=== PATIENT | female | born 1970 | race Caucasian/White ===

== ENCOUNTER 2019-02-23 15:50 | Observation (INO) | payer OTHER ==
[2019-02-23] MEDS ORDERED: NA CHLORIDE 0.9% 1,000 ML ONE ×2 (16:27→19:19)
[2019-02-23 16:29] LABS: Blood Gas Oxyhemoglobin 88.2 % (94-97); Blood O2 Saturation 95.7 % (92-98.5)
--- NOTE | 2019-02-23 16:39 | RAD REPORT ---
EXAM DESCRIPTION: RAD - Chest Single View - 02/23/2019 4:22 pm CLINICAL HISTORY: Chest pain COMPARISON: September 2013 TECHNIQUE: AP portable chest image was obtained 1619 hours . FINDINGS: Lungs are clear. Heart and vasculature are normal. No measurable pleural effusion and no p neumothorax. No acute bony abnormality seen. No acute aortic findings suspected. IMPRESSION: No acute cardiopulmonary process. No significant interval change.
[2019-02-23] MEDS ORDERED: INSULIN -REGULAR HUMAN 100 UNIT in NA CHLORIDE 0.9% 100 ML IV ONE (17:00)
[2019-02-23] MEDS ORDERED: INSULIN -REGULAR HUMAN 50 UNIT/0.5 ML ML ONE (17:00)
[2019-02-23 17:02] LABS: Protime INR 0.94
[2019-02-23 17:03] LABS: Absolute Lymphocytes (CBC) 1.6 K/uL (0.7-4.9); Absolute Monocytes 0.6 K/uL (0.1-1.3); Absolute Neutrophil 4.5 K/uL (1.8-8.0); Basophils % 0.8 % (0-1.3); Eosinophils % 1.9 % (0-4.4); Hematocrit 41.8 % (36.0-45.0); Lymphocytes % 22.8 % (15.3-44.8); MPV 8.8 fL (7.6-11.3); Monocytes % 8.1 % (3.3-12.3); RBC Red Blood Cell Count 4.06 M/uL (3.86-4.86)
[2019-02-23 17:32] LABS: ALT/SGPT 19 U/L (12-78); AST/SGOT 16 U/L (15-37); Alkaline Phosphatase 97 U/L (45-117); BUN Blood Urea Nitrogen 17 mg/dL (7-18); Bicarbonate 17 mmol/L (21-32); Bilirubin Direct 0.2 mg/dL (0-0.2); Bilirubin Total 0.9 mg/dL (0.2-1.0); Magnesium 1.9 mg/dL (1.8-2.4); NT PRO-BNP 266 pg/mL (<125); Potassium 4.5 mmol/L (3.5-5.1); Protein, Total 7.2 g/dL (6.4-8.2); Sodium Level 133 mmol/L (136-145); Troponin (Emerg Dept Use Only) < 0.02 ng/mL (0.0-0.045)
[2019-02-23 17:35] LABS: Glucose Level 454 mg/dL (74-106)
[2019-02-23 18:08] LABS: Urine Blood 2+ (NEG); Urine Glucose 2+ (NEG); Urine Protein NEGATIVE (NEG); Urine Specific Gravity 1.025 (1.005-1.030)
[2019-02-23 18:38] LABS: Urine Bacteria NONE SEEN /HPF (<20); Urine Culture Reflex Order NOT NEEDED; Urine RBC <5 /HPF (NONE SEEN)
--- NOTE | 2019-02-23 19:07 | ER ---
Nurse's Notes [facility] Name: Annia Wang Age: 48 yrs Sex: Female : 1970 Arrival Date: 02/23/2019 Time: 15:53 Bed 23 Private MD: Chloe Cleaning C Diagnosis: Type 1 diabetes mellitus with ketoacidosis Presentation: 02/23 15:55 Presenting complaint: Patient states: heart racing, chest tightness, nausea, cough, sv hyperglycemia BS has been in the 400-500s today, normally it is 80-100s started today. Pt has an insulin pump. Transition of care: patient was not received from another setting of care. Onset of symptoms was February 23, 2019. Care prior to arrival: None. 15:55 Method Of Arrival: Ambulatory sv 15:55 Acuity: ONOFRE 3 sv 20:04 Initial Sepsis Screen: Does the patient meet any 2 criteria? No. Patient's initial ea sepsis screen is negative. Does the patient have a suspected source of infection? No. Patient's initial sepsis screen is negative. 20:04 Risk Assessment: Do you want to hurt yourself or someone else? Patient reports no ea desire to harm self or others. Triage Assessment: 15:56 General: Appears in no apparent distress. uncomfortable, well groomed, well developed, sv Behavior is calm, cooperative, appropriate for age. Pain: Complains of pain in chest Pain currently is 3 out of 10 on a pain scale. Quality of pain is described as "tightness". Neuro: Level of Consciousness is awake, alert, obeys commands, Oriented to person, place, time, situation, Moves all extremities. Full function Gait is steady, Speech is normal. Respiratory: Airway is patent Respiratory effort is even, unlabored, Respiratory pattern is regular, symmetrical. Derm: Skin is normal. Historical: - Allergies: 15:57 adhesive; sv 15:57 Levsin; sv 15:57 Semprex-D; sv 15:57 Sulfa (Sulfonamide Antibiotics); sv - PMHx: 15:57 allergies; Diabetes - IDDM; sv - PSHx: 15:57 Cholecystectomy; Hysterectomy; sinus sx; phu carpal tunnel sx; left shoulder sx bone sv spur removed; cardiac cath; - Immunization history:: Adult Immunizations up to date. - Social history:: Smoking status: Patient uses tobacco products, denies chronic smoking, but will smoke occasionally. - Ebola Screening: : No symptoms or risks identified at this time. Screenin:18 Abuse screen: Denies threats or abuse. Denies injuries from another. Nutritional aj screening: No deficits noted. Tuberculosis screening: No symptoms or risk factors identified. Fall Risk None identified. Assessment: 16:18 General: Appears in no apparent distress. comfortable, Behavior is calm, cooperative, aj appropriate for age. Pain: Denies pain. Neuro: Level of Consciousness is awake, alert, obeys commands, Oriented to person, place, time, situation, Appropriate for age. Cardiovascular: Reports palpitations, Capillary refill < 3 seconds in bilateral fingers Patient's skin is warm and dry. Respiratory: Airway is patent Respiratory effort is even, unlabored, Respiratory pattern is regular, symmetrical. Derm: Skin is intact, is healthy with good turgor, Skin is pink, warm \\T\\ dry. normal. 19:00 General: Appears in no apparent distress. Behavior is calm, cooperative, appropriate ea for age. Pain: Denies pain. Neuro: Level of Consciousness is awake, alert, obeys commands, Oriented to person, place, time, situation. Cardiovascular: Patient's skin is warm and dry. Respiratory: Airway is patent Respiratory effort is even, unlabored, Respiratory pattern is regular, symmetrical. GI: No signs and/or symptoms were reported involving the gastrointestinal system. Derm: Skin is pink, warm \\T\\ dry. Musculoskeletal: Circulation, motion, and sensation intact. 20:01 Reassessment: Patient and/or family updated on plan of care and expected duration. Pain ea level reassessed. Patient is alert, oriented x 3, equal unlabored respirations, skin warm/dry/pink. Awaiting on room assignment. 20:45 Reassessment: Patient and/or family updated on plan of care and expected duration. Pain ea level reassessed. Patient is alert, oriented x 3, equal unlabored respirations, skin warm/dry/pink. Blood sugar 67, provider notified, pt given sandwich Patient denies pain at this time. 21:44 Reassessment: Patient and/or family updated on plan of care and expected duration. Pain ea level reassessed. Patient is alert, oriented x 3, equal unlabored respirations, skin warm/dry/pink. Report given to Arlin FERNANDES in ICU. 21:50 Reassessment: Patient and/or family updated on plan of care and expected duration. Pain ea level reassessed. Patient is alert, oriented x 3, equal unlabored respirations, skin warm/dry/pink. Pt taken via stretcher, on monitor, per nurse. Pt tolerating well. Patient denies pain at this time. Vital Signs: 15:57 BP 127 / 65; Pulse 100; Resp 20; Temp 97.8; Pulse Ox 100% ; Weight 73.48 kg; Height 5 sv ft. 4 in. (162.56 cm); Pain 3/10; 17:21 BP 119 / 63; Pulse 89; Resp 20; Pulse Ox 99% on R/A; aj 18:33 BP 128 / 65; Pulse 83; Resp 19; Pulse Ox 100% on R/A; aj 19:00 BP 129 / 77; Pulse 78; Resp 19; Pulse Ox 98% ; ea 20:00 BP 118 / 52; Pulse 73; Resp 18; Pulse Ox 99% ; ea 20:48 BP 119 / 65; Pulse 79; Resp 18; Pulse Ox 100% on R/A; ea 21:50 BP 123 / 68; Pulse 72; Resp 18; Temp 98.6; Pulse Ox 99% ; ea 15:57 Body Mass Index 27.81 (73.48 kg, 162.56 cm) sv ED Course: 15:53 Patient arrived in ED. as 15:53 Chloe Cleaning MD is Private Physician. as 15:56 Triage completed. sv 15:58 Arm band placed on. sv 16:04 Shaista Crandall, RN is Primary Nurse. aj 16:05 [facility]. snw 16:05 Ananth Woodward MD is Attending Physician. snw 16:15 EKG done, by in flight technician. reviewed by Angle MEDINA. sm3 16:18 Patient has correct armband on for positive identification. 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 Pulse aj ox on. NIBP on. 16:22 XRAY Chest (1 view) In Process Unspecified. EDMS 17:55 Urine collected: clean catch specimen, clear, deneen colored. jp3 18:21 Urine Culture Sent. jp3 18:21 Urine Microscopic Only Sent. jp3 19:05 Chloe Cleaning MD is Hospitalizing Provider. snw 20:04 No provider procedures requiring assistance completed. Patient admitted, IV remains in ea place. Administered Medications: 16:30 Drug: Insulin Regular Human 5 units {Co-Signature: todd Crandall RN).} Route: Sub-Q; iw Site: right upper arm; 17:47 Follow up: Response: Blood sugar is lowered aj 16:30 Drug: Insulin Regular Human 5 units {Co-Signature: todd Crandall RN).} Route: IVP; iw Site: right antecubital; 17:47 Follow up: Response: Blood sugar is lowered aj 16:38 Drug: NS 0.9% 1000 ml Route: IV; Rate: 1 bolus; Site: right antecubital; aj 19:14 Follow up: Response: No adverse reaction; IV Status: Completed infusion; IV Intake: ea 1000ml 17:05 Drug: Insulin Drip - (Insulin Regular Human 100 units, NS 0.9% 100 ml) {Co-Signature: iw todd (Shaista Crandall RN).} Route: IV; Rate: 7 units/hr; Site: right antecubital; 19:22 Drug: NS 0.9% 1000 ml Route: IV; Rate: 125 ml/hr; Site: right antecubital; ea 21:50 Follow up: Response: No adverse reaction; IV Status: Infusion continued upon admission; ea IV Intake: 300ml 20:01 Drug: D5-NS 1000 ml Route: IV; Rate: 125 ml/hr; Site: right antecubital; ea 21:50 Follow up: Response: No adverse reaction; IV Status: Infusion continued upon admission; ea IV Intake: 125ml 21:52 Drug: Tylenol 1000 mg Route: PO; ea 22:00 Follow up: Response: No adverse reaction ea Point of Care Testing: Blood Glucose: 16:00 Blood Glucose: 423 mg/dL; sv 17:40 Blood Glucose: 281 mg/dL; aj 18:33 Blood Glucose: 210 mg/dL; aj 19:40 Blood Glucose: 116 mg/dL; ea 20:50 Blood Glucose: 67 mg/dL; ea 21:26 Blood Glucose: 120 mg/dL; ea Ranges: Intake: 19:14 IV: 1000ml; Total: 1000ml. ea 21:50 IV: 300ml; Total: 1300ml. ea 21:50 IV: 125ml; Total: 1425ml. ea Outcome: 19:06 Decision to Hospitalize by Provider. snw 19:35 Instructed on the need for admit. ea 21:42 Admitted to ICU accompanied by nurse, via wheelchair, room 3, with chart, Report called ea to Arlin FERNANDES 21:42 Condition: stable 22:07 Patient left the ED. mg2 Signatures: Dispatcher [employer] Sivan Brown RN RN sv Myers, Amanda RN Angle Baeza, REGISTRAR NURSES' REGISTRY-C REGISTRAR NURSES' REGISTRY-Csnw Bailey Carter Irene RN DENA iw Kiki Dawson RN Uriel Rodrigez ea RN DENA mg2 Michelle Drake3 Howard Syed jp3 Shaista brooks Corrections: (The following items were deleted from the chart) 15:58 15:55 Presenting complaint: Patient states: heart racing, chest tightness, nausea, sv cough, hyperglycemia BS has been in the 400-500s today, normally it is 80-100s started today. sv
--- NOTE | 2019-02-23 19:07 | EDPHYS ---
Physician Documentation [facility] Name: Annia Wang Age: 48 yrs Sex: Female : 1970 Arrival Date: 02/23/2019 Time: 15:53 Bed 23 Private MD: Chloe Cleaning C ED Physician Ananth Woodward HPI: 02/23 17:20 This 48 yrs old Female presents to ER via Ambulatory with complaints of Chest snw Tightness, Palpitations, High Blood Sugar. 17:20 Onset: The symptoms/episode began/occurred acutely. Associated signs and symptoms: snw Pertinent positives: nausea. The patient has experienced a previous episode, approximately 20 years ago, but today's symptoms are not as bad as this previous episode. The patient has not recently seen a physician. recently started Zoloft. Historical: - Allergies: 15:57 adhesive; sv 15:57 Levsin; sv 15:57 Semprex-D; sv 15:57 Sulfa (Sulfonamide Antibiotics); sv - PMHx: 15:57 allergies; Diabetes - IDDM; sv - PSHx: 15:57 Cholecystectomy; Hysterectomy; sinus sx; phu carpal tunnel sx; left shoulder sx bone sv spur removed; cardiac cath; - Immunization history:: Adult Immunizations up to date. - Social history:: Smoking status: Patient uses tobacco products, denies chronic smoking, but will smoke occasionally. - Ebola Screening: : No symptoms or risks identified at this time. ROS: 17:18 Eyes: Negative for injury, pain, redness, and discharge, ENT: Negative for injury, snw pain, and discharge, Neck: Negative for injury, pain, and swelling, Cardiovascular: Negative for chest pain, palpitations, and edema, Respiratory: Negative for shortness of breath, cough, wheezing, and pleuritic chest pain. 17:18 Back: Negative for injury and pain, : Negative for injury, bleeding, discharge, and swelling, MS/Extremity: Negative for injury and deformity, Skin: Negative for injury, rash, and discoloration, Neuro: Negative for headache, weakness, numbness, tingling, and seizure, Psych: Negative for depression, anxiety, suicide ideation, homicidal ideation, and hallucinations. 17:18 Constitutional: Positive for body aches, malaise. 17:18 Abdomen/GI: Positive for nausea. Exam: 17:18 Constitutional: This is a well developed, well nourished patient who is awake, alert, snw and in no acute distress. Head/Face: Normocephalic, atraumatic. Eyes: Pupils equal round and reactive to light, extra-ocular motions intact. Lids and lashes normal. Conjunctiva and sclera are non-icteric and not injected. Cornea within normal limits. Periorbital areas with no swelling, redness, or edema. ENT: Nares patent. No nasal discharge, no septal abnormalities noted. Tympanic membranes are normal and external auditory canals are clear. Oropharynx with no redness, swelling, or masses, exudates, or evidence of obstruction, uvula midline. Mucous membranes moist. Neck: Trachea midline, no thyromegaly or masses palpated, and no cervical lymphadenopathy. Supple, full range of motion without nuchal rigidity, or vertebral point tenderness. No Meningismus. Chest/axilla: Normal chest wall appearance and motion. Nontender with no deformity. No lesions are appreciated. Cardiovascular: Tachycardic rate and rhythm with a normal S1 and S2. No gallops, murmurs, or rubs. Normal PMI, no JVD. No pulse deficits. Respiratory: Lungs have equal breath sounds bilaterally, clear to auscultation and percussion. No rales, rhonchi or wheezes noted. No increased work of breathing, no retractions or nasal flaring. Abdomen/GI: Soft, non-tender, with normal bowel sounds. No distension or tympany. No guarding or rebound. No evidence of tenderness throughout. Back: No spinal tenderness. No costovertebral tenderness. Full range of motion. Skin: Warm, dry with normal turgor. Normal color with no rashes, no lesions, and no evidence of cellulitis. MS/ Extremity: Pulses equal, no cyanosis. Neurovascular intact. Full, normal range of motion. Neuro: Awake and alert, GCS 15, oriented to person, place, time, and situation. Cranial nerves II-XII grossly intact. Motor strength 5/5 in all extremities. Sensory grossly intact. Cerebellar exam normal. Normal gait. Psych: Awake, alert, with orientation to person, place and time. Behavior, mood, and affect are within normal limits. 17:25 ECG was reviewed by the Attending Physician. snw Vital Signs: 15:57 BP 127 / 65; Pulse 100; Resp 20; Temp 97.8; Pulse Ox 100% ; Weight 73.48 kg; Height 5 sv ft. 4 in. (162.56 cm); Pain 3/10; 17:21 BP 119 / 63; Pulse 89; Resp 20; Pulse Ox 99% on R/A; aj 18:33 BP 128 / 65; Pulse 83; Resp 19; Pulse Ox 100% on R/A; aj 19:00 BP 129 / 77; Pulse 78; Resp 19; Pulse Ox 98% ; ea 20:00 BP 118 / 52; Pulse 73; Resp 18; Pulse Ox 99% ; ea 20:48 BP 119 / 65; Pulse 79; Resp 18; Pulse Ox 100% on R/A; ea 21:50 BP 123 / 68; Pulse 72; Resp 18; Temp 98.6; Pulse Ox 99% ; ea 15:57 Body Mass Index 27.81 (73.48 kg, 162.56 cm) sv MDM: 16:06 Patient medically screened. [facility] 19:06 Data reviewed: vital signs, nurses notes. Data interpreted: Pulse oximetry: on room air snw is 100 %. Interpretation: normal. Counseling: I had a detailed discussion with the patient and/or guardian regarding: the historical points, exam findings, and any diagnostic results supporting the discharge/admit diagnosis, lab results, radiology results, the need for further work-up and treatment in the hospital. Physician consultation: A Black EUGENE was called at 19:06, was contacted at 19:07, regarding admission, to the ICU, in the emergency department to see patient at 19:06. 02/23 16:08 Order name: Basic Metabolic Panel; Complete Time: 17:39 snw 02/23 16:08 Order name: CBC with Diff; Complete Time: 17:09 snw 02/23 16:08 Order name: LFT's; Complete Time: 17:39 snw 02/23 16:08 Order name: Magnesium; Complete Time: 17:39 snw 02/23 16:08 Order name: NT PRO-BNP; Complete Time: 17:39 snw 02/23 16:08 Order name: PT-INR; Complete Time: 18:09 snw 02/23 16:08 Order name: Troponin (emerg Dept Use Only); Complete Time: 17:39 snw 02/23 16:08 Order name: Blood Culture Adult (2) 02/23 16:08 Order name: ABG: venous blood gas for pH please; Complete Time: 16:52 snw 02/23 16:08 Order name: Procalcitonin; Complete Time: 17:39 snw 02/23 17:20 Order name: Flu; Complete Time: 18:09 snw 02/23 17:40 Order name: Urine Culture 02/23 17:40 Order name: Urine Microscopic Only; Complete Time: 18:39 snw 02/23 18:06 Order name: Urine Dipstick--Ancillary (enter results); Complete Time: 18:09 bd 02/23 16:08 Order name: XRAY Chest (1 view); Complete Time: 16:41 snw 02/23 16:08 Order name: EKG; Complete Time: 16:09 w 02/23 16:08 Order name: Cardiac monitoring; Complete Time: 16:39 snw 02/23 18:06 Order name: Urine --Ancillary (enter results); Complete Time: 18:09 bd 02/23 18:33 Order name: Glucose, Ancillary Testing; Complete Time: 18:35 EDMS 02/23 18:33 Order name: Glucose, Ancillary Testing; Complete Time: 18:35 EDMS 02/23 18:33 Order name: Glucose, Ancillary Testing; Complete Time: 18:35 EDMS 02/23 18:39 Order name: Chem 7; Complete Time: 20:15 w 02/23 16:08 Order name: EKG - Nurse/Tech; Complete Time: 16:20 w 02/23 16:08 Order name: IV Saline Lock; Complete Time: 16:39 w 02/23 16:08 Order name: Labs collected and sent; Complete Time: 16:39 w 02/23 16:08 Order name: O2 Per Protocol; Complete Time: 16:18 w 02/23 16:08 Order name: O2 Sat Monitoring; Complete Time: 16:18 w 02/23 16:08 Order name: NPO; Complete Time: 16:20 w 02/23 16:08 Order name: Misc. Order: discontinue insulin pump; Complete Time: 16:20 w 02/23 16:08 Order name: FSBS; Complete Time: 16:20 w 02/23 17:40 Order name: Urine Dipstick-Ancillary (obtain specimen); Complete Time: 17:58 snw 02/23 19:00 Order name: Dora. Order: decrease insulin to 2units/hr; Complete Time: 19:05 snw 02/23 19:44 Order name: Dora. Order: decrease insulin drip to 1unit/hr until new chem 7 eval; snw Complete Time: 19:46 02/23 20:16 Order name: Dora. Order: dc insulin drip; Complete Time: 20:19 snw EC:25 Rate is 92 beats/min. Rhythm is regular. QRS [place] is Normal. No Q waves. T waves are snw Normal. No ST changes noted. Clinical impression: NSR w/ Non-specific ST/T Changes. Administered Medications: 16:30 Drug: Insulin Regular Human 5 units {Co-Signature: todd (Shaista Crandall RN).} Route: Sub-Q; iw Site: right upper arm; 17:47 Follow up: Response: Blood sugar is lowered aj 16:30 Drug: Insulin Regular Human 5 units {Co-Signature: todd (Shaista Crandall RN).} Route: IVP; iw Site: right antecubital; 17:47 Follow up: Response: Blood sugar is lowered aj 16:38 Drug: NS 0.9% 1000 ml Route: IV; Rate: 1 bolus; Site: right antecubital; aj 19:14 Follow up: Response: No adverse reaction; IV Status: Completed infusion; IV Intake: ea 1000ml 17:05 Drug: Insulin Drip - (Insulin Regular Human 100 units, NS 0.9% 100 ml) {Co-Signature: iw todd (Shaista Crandall RN).} Route: IV; Rate: 7 units/hr; Site: right antecubital; 19:22 Drug: NS 0.9% 1000 ml Route: IV; Rate: 125 ml/hr; Site: right antecubital; ea 21:50 Follow up: Response: No adverse reaction; IV Status: Infusion continued upon admission; ea IV Intake: 300ml 20:01 Drug: D5-NS 1000 ml Route: IV; Rate: 125 ml/hr; Site: right antecubital; ea 21:50 Follow up: Response: No adverse reaction; IV Status: Infusion continued upon admission; ea IV Intake: 125ml 21:52 Drug: Tylenol 1000 mg Route: PO; ea 22:00 Follow up: Response: No adverse reaction ea Point of Care Testing: Blood Glucose: 16:00 Blood Glucose: 423 mg/dL; sv 17:40 Blood Glucose: 281 mg/dL; aj 18:33 Blood Glucose: 210 mg/dL; aj 19:40 Blood Glucose: 116 mg/dL; ea 20:50 Blood Glucose: 67 mg/dL; ea 21:26 Blood Glucose: 120 mg/dL; ea Ranges: Critical Glucose Levels:Adult <50 mg/dl or >400 mg/dl <40 mg/dl or >180 mg/dl Disposition: 02/24 12:13 Co-signature as Attending Physician, Ananth Woodward MD I agree with the assessment and [facility] plan of care. Disposition: 02/23/19 19:06 Hospitalization ordered by Chloe Cleaning for Inpatient Admission. Preliminary diagnosis is Type 1 diabetes mellitus with ketoacidosis. - Bed requested for Intensive Care Unit. - Status is Inpatient Admission. mg2 - Condition is Stable. - Problem is new. - Symptoms have improved. UTI on Admission? No Signatures: Dispatcher [employer] EDUT Sivan Frank RN Shaista Barajas RN Ananth Hitchcock MD MD cha Therrien, Shelly, BAND INSTRUMENT MAKER-C BAND INSTRUMENT MAKER-Csnw Camelia Mccallum, RN Kori Holland, RN Kiki Arellano, RN Uriel Rodrigez ea, RN DENA brooks Corrections: (The following items were deleted from the chart) 02/23 16:11 16:09 Chest Single View+RAD.[email or web address].[email or web address] ordered. EDUT EDMS 21:15 19:06 Hospitalization Ordered by A Black EUGENE for Inpatient Admission. Preliminary cg diagnosis is Type 1 diabetes mellitus with ketoacidosis. Bed requested for Intensive Care Unit. Status is Inpatient Admission. Condition is Stable. Problem is new. Symptoms have improved. UTI on Admission? No. snw 22:07 21:15 02/23/2019 19:06 Hospitalization Ordered by A Black EUGENE for Inpatient Admission. mg2 Preliminary diagnosis is Type 1 diabetes mellitus with ketoacidosis. Bed requested for Intensive Care Unit. Status is Inpatient Admission. Condition is Stable. Problem is new. Symptoms have improved. UTI on Admission? No. cg
[2019-02-23] MEDS ORDERED: D5 0.45 NS 0 ML IV ONE (19:56)
[2019-02-23 20:04] LABS: Potassium 3.7 mmol/L (3.5-5.1)
[2019-02-23] MEDS ORDERED: D5 0.9 NS 1,000 ML IV ONE (20:06)
[2019-02-23] MEDS ORDERED: hydrOXYzine HCl 25 MG TAB PO ONE (21:04)
[2019-02-23] MEDS ORDERED: GLUCAGON 1 MG/VIAL IM PRN (21:23)
[2019-02-23] MEDS ORDERED: D50W 25 GM/50 ML SYRINGE IV PRN (21:23)
[2019-02-23] MEDS ORDERED: NA CHLORIDE 0.9% 1,000 ML IV SCH (21:23)
[2019-02-23] MEDS ORDERED: ACETAMINOPHEN 500 MG TAB ONE (22:04)
[2019-02-23] MEDS ORDERED: CEFTRIAXONE 1 GM/NS 50 ML 1 GM/50 ML BAG IV SCH (23:00)
[2019-02-23] MEDS ORDERED: INSULIN GLARGINE 100 UNITS/ML SQ ONE (23:00)
[2019-02-23] MEDS ORDERED: CEFTRIAXONE/SWI 1gm 1 GM/10 ML SYR ONE (23:06)
[2019-02-24] MEDS ORDERED: NA CHLORIDE 0.9% 100 ML ONE (01:27)
[2019-02-24] MEDS ORDERED: INSULIN -REGULAR HUMAN 50 UNIT/0.5 ML ML ONE (01:27)
[2019-02-24 05:07] VITALS: O2SAT 98
[2019-02-24 05:53] LABS: Magnesium 1.9 mg/dL (1.8-2.4); Potassium 4.4 mmol/L (3.5-5.1); Thyroid Stimulating Hormone 1.69 uIU/mL (0.360-3.740)
--- NOTE | 2019-02-24 05:53 | HP ---
Date of Admission: 02/23/2019 Chief Complaint: High sugar, nausea, vomiting. History Of Present Illness: This is 48-year-old very pleasant female patient who has type 1 diabetes mellitus, who is doing very well on insulin pump. Her last hemoglobin A1c was 7.5 about 3 months ag o and she sees her field placement director regularly for diabetes management. She has been very stable on in sulin pump for long time. Her blood sugar ranges anywhere between 80 to 150 and that is how it was y esterday. She has not been sick with any infection lately, except has some allergy type of symptoms, cough, chest congestion, coughing up some mucus that looks yellow in color lately. No fever, chills . No diarrhea. Yesterday evening, her insulin pump reservoir was running low in amount, but did not run out completely, so she changed her insulin reservoir last night and her sugar was like 250 or so last night before she went to bed, but she realized that she had eaten something that was high in ca rbs yesterday evening, so that would explain her high sugar. This morning, she woke up with high sug ar anywhere between 500 to 600 and she never had this issue before. She started to have some nausea, vomited once, and felt dizzy, started to have some palpitation. Her insulin requirement in 24 hours is anywhere between 37 to 42 units per day, but since her blood sugar was running high this morning, she started to give herself extra insulin and by 4 p.m. altogether she took 46 units of insulin and blood sugar still continued to stay high in 500 to 600 range with above other mentioned symptoms and extreme dry mouth. She came into emergency room after she was evaluated in the ER. She was diagnose d as having diabetic ketoacidosis and admitted to the hospital. She was treated in the emergency james m with IV fluid, IV insulin, and she started feeling better. I saw her in the emergency room for thi s admission. Allergies: TO CIPRO, CODEINE, HYOSCYAMINE, IODINE, MOXIFLOXACIN, PSEUDOEPHEDRINE, SULFA, TETRACYCLIN E. Medications: Insulin per insulin pump, hydroxyzine 25 to 50 mg at bedtime, Dulera 2 puffs twice a da y, gabapentin 300 mg at bedtime, rosuvastatin 10 mg daily, sertraline 100 mg daily, Singulair 10 mg d aily, Ventolin p.r.n., B12 1000 mcg daily, D3 1000 units daily. Review of Systems: Endocrine: As mentioned above. Constitutional: As mentioned above. Respiratory: As mentioned above. Cardiovascular: As mentioned above. All other systems reviewed and negative. Past Medical History: Mixed hyperlipidemia, type 1 diabetes mellitus, vitamin B12 deficiency, anemia , insomnia, depression, allergic rhinitis, gastroesophageal reflux disease. Past Surgical History: Hysterectomy and laparoscopic surgery x2 due to endometriosis. Family History: Significant for anxiety, asthma, prostate cancer, hyperlipidemia, hypertension. Social History: Positive for smoking. Use of alcohol socially. Physical Examination: Vital Signs: When she came into emergency room, blood pressure 127/65, pulse 100, respiratory rate 2 0, temperature 97.8, pulse ox 100%, weight 73.48 kg, height 5 feet 4 inches. General: Awake, alert, oriented, not in distress. HEENT: Head atraumatic, normocephalic. Conjunctivae nonerythematous. Sclerae white. Mouth, no thr ush or edema noted. Ears/Nose, no mass, lesion, discharge noted. Neck: Supple. No JVD, lymph nodes, bruit, thyromegaly noted. Lungs: Bilateral good equal air entry. Minimum wheezing noted in left lung field. No rales. Not us ing accessory muscles for respiration. Heart: Normal heart sounds, no murmur or gallop. Abdomen: Soft, bowel sounds normal. No guarding, rigidity, tenderness, mass, hepatosplenomegaly, dis tention, or bruit noted. Extremities: No leg edema. No calf tenderness. Skin: No rash, ulcer, cellulitis. Lymphatics: No lymph node enlargement in neck, supraclavicular, infraclavicular region. Neuro: No focal neurological deficit. Chest: Unremarkable. External Genitalia: Deferred. Rectal: Deferred. Laboratory Data: Chest x-ray no acute cardiopulmonary changes. Blood gas; pH 7.29, pCO2 27.8, PO2 8 5.5, bicarb 12.9, oxygen saturation 95.7% on room air. Initial sodium 133, potassium 4.5, chloride 9 7, bicarb 17, BUN 17, creatinine 0.91, glucose 454. Liver function tests unremarkable. Troponin les s than 0.02. Procalcitonin less than 0.05. White count 6.8, hemoglobin 14.1, platelets 210. Repeat sodium this evening 140, potassium 3.7, chloride 108, bicarb 21, BUN 15, creatinine 0.71, glucose 11 3. Urinalysis unremarkable, except 2+ blood, 4+ ketones, 2+ glucose. test negative. Impression: 1.Type 1 diabetes mellitus with diabetic ketoacidosis. 2.Acute bronchitis. 3.Hyperlipidemia. 4.Depression. 5.B12 deficiency anemia. Plan: We will admit the patient to hospital for further evaluation and management of this problem. The patient is appropriate for inpatient and is expected to spend 2 midnights in the hospital. We wi ll continue insulin drip, IV fluid. Continue home medications per order. I will see her tomorrow fo r followup. Empiric antibiotics will be started and the patient will be kept in ICU overnight. Depe nding on her condition tomorrow, we will decide if she is stable for transfer out of ICU to regular r oom or not. The patient was advised to follow up with her field placement director next week. KATHLEEN/KAMERON Voice ID: [id number]
[2019-02-24 06:10] VITALS: BMI 28.4
[2019-02-24] MEDS ORDERED: hydrOXYzine HCl 25 MG TAB PO PRN (07:08)
--- NOTE | 2019-02-24 07:59 | EKG ---
Test Date: 2019-02-23 Test Time: 16:05:26 Manager Digital Ad Operations: JOSE MEASUREMENT RESULTS: Intervals: Rate: 92 CO: 128 QRSD: 78 QT: 356 QTc: 440 [place]: P: 75 CO: 128 QRS: 41 T: 42 INTERPRETIVE STATEMENTS: Normal sinus rhythm Biatrial enlargement Nonspecific ST and T wave abnormality Abnormal ECG Compared to ECG 08/13/2013 11:16:03 No significant changes Electronically Signed On 02-24-19 07:59:20 CDT by Hardik Yan
[2019-02-24] MEDS ORDERED: SERTRALINE HCL 100 MG TAB PO SCH (09:00)
[2019-02-24] MEDS ORDERED: CEFTRIAXONE/SWI 1gm 1 GM/10 ML SYR IV SCH (09:00)
[2019-02-24] MEDS ORDERED: ENOXAPARIN 40 MG/0.4 ML SQ SCH (09:00)
[2019-02-24] MEDS ORDERED: PNEUMOCOCCAL VACCINE 0.5 ML IMVAC ONE (13:00)
[2019-02-24 16:25] VITALS: BP 114/74; TEMP 98.3
--- NOTE | 2019-02-25 18:27 | DS ---
Date of Discharge: 02/24/2019 Disposition: Discharged to go home. Physical Examination: HEENT: Unremarkable. Lungs: Clear to auscultation. Heart: Sounds normal. Abdomen: Soft. Bowel sounds normal. No guarding, rigidity, tenderness or distention. Extremities: No leg edema. Laboratory Data: Today, sodium 143, potassium 4.4, chloride 110, bicarb 28, BUN 13, creatinine 0.70, glucose 115. Hemoglobin A1c 7.8. Hospital Course: A 48-year-old female patient, who came into emergency room yesterday with nausea, vomiting, palpitation, dry mouth and a very high blood sugar between 500-600 range at home. Please see dictated H and P for more information. The patient was not able to bring her sugar down with her insulin and she came into ER. After she was evaluated in the ER, she was admitted to the hospital with diabetic ketoacidosis. IV fluid was given. IV insulin drip was started. She was admitted to Intensive Care Unit. Her condition has improved significantly overnight in ICU. Her diabetic ketoacidosis problem has resolved completely. This morning, when I saw her, she is feeling fine back to her normal self and wanted to go home if possible. Medically, she is stable for discharge. She sees her tool radial drill press set up operator in [place] regularly and I have advised her to follow up with her tool radial drill press set up operator next week for further management considering this diabetic ketoacidosis problem. Discharge Medication: Continue all prior home medication. Discharge Instructions: 1. Follow up with my office next week as per her appointment. 2. Follow up with tool radial drill press set up operator next week. Discharge Diagnoses: 1. Type 1 diabetes mellitus with diabetic ketoacidosis. 2. Acute bronchitis. 3. Hyperlipidemia. 4. Depression. 5. B12 deficiency anemia. KATHLEEN/MODL Voice ID: [id number] Report ID: [id number] PAUL
== END 2019-02-24 15:40 | disposition home or self-care (01) ==
LOC: ER 15:50 → ERHOLD 20:32 → INTOOBSV 20:32 → 3RD-ICU 21:45
PROVIDERS: ADMIT Internal Medicine; ATTEND Internal Medicine
DX: E10.10 Type 1 diabetes mellitus with ketoacidosis without coma (principal); J20.9 Acute bronchitis, unspecified; E78.5 Hyperlipidemia, unspecified; F32.9 Major depressive disorder, single episode, unspecified; D51.9 Vitamin B12 deficiency anemia, unspecified; Z88.0 Allergy status to penicillin; Z88.2 Allergy status to sulfonamides; Z23 Encounter for immunization
CPT/HCPCS: 36415; 71045; 80048; 80061; 80076; 81003; 81015; 81025; 82805; 82962; 83036; 83735; 83880; 84145; 84443; 84484; 85025; 85610; 87040; 87086; 87088; 87804; 90670; 93005; 96361; 96365; 96366; 96372; 96375; 99285; G0009; G0378; J0696; J1650; J7030

== ENCOUNTER 2020-03-18 11:59 | Emergency (ER) | payer OTHER ==
[2020-03-18] MEDS ORDERED: LIDOCAINE 1% W/EPI 1:100,000 MDV 20 ML VIAL ONE (12:23)
[2020-03-18] MEDS ORDERED: FENTANYL CITR 100 MCG/2 ML ONE (12:23)
--- NOTE | 2020-03-18 12:48 | ER ---
Nurse's Notes [facility] Name: Annia Wang Age: 49 yrs Sex: Female : 1970 Arrival Date: 03/18/2020 Time: 12:01 Bed 20 Private MD: Diagnosis: Cutaneous abscess of buttock Presentation: 03/18 12:07 Chief complaint: Patient states: Abscess on buttocks x 4 days. Coronavirus screen: ca1 Proceed with normal triage. Patient denies a cough. Patient denies shortness of breath or difficulty breathing. Patient denies measured and/or subjective temperature greater than 100.4F prior to today's visit. Patient denies travel on a cruise ship or to a country the [facility] currently lists as an affected area. Patient denies contact with known and/or suspected case of COVID-19. Ebola Screen: Patient negative for fever greater than or equal to 101.5 degrees Fahrenheit, and additional compatible Ebola Virus Disease symptoms Patient denies exposure to infectious person. Patient denies travel to an Ebola-affected area in the 21 days before illness onset. No symptoms or risks identified at this time. Initial Sepsis Screen: Does the patient meet any 2 criteria? No. Patient's initial sepsis screen is negative. Does the patient have a suspected source of infection? No. Patient's initial sepsis screen is negative. Risk Assessment: Do you want to hurt yourself or someone else? Patient reports no desire to harm self or others. Onset of symptoms was March 18, 2020. 12:07 Method Of Arrival: Ambulatory ca1 12:07 Acuity: ONOFRE 4 ca1 BOTTLE LABELER: 12:09 LMP N/A - Hysterectomy ca1 Historical: - Allergies: 12:09 adhesive; ca1 12:09 Levsin; ca1 12:09 Semprex-D; ca1 12:09 Sulfa (Sulfonamide Antibiotics); ca1 - Home Meds: 12:09 Humalog Sub-Q via insulin pump [Active]; rosuvastatin 5 mg oral tab 1 tab once daily ca1 [Active]; - PMHx: 12:09 allergies; Diabetes - IDDM; High Cholesterol; ca1 - PSHx: 12:09 Cholecystectomy; Hysterectomy; cardiac cath; left shoulder sx bone spur removed; phu ca1 carpal tunnel sx; sinus sx; - Immunization history:: Adult Immunizations up to date. - Social history:: Smoking status: Patient reports the use of cigarette tobacco products, smokes one pack cigarettes per day. Screenin:28 Abuse screen: Denies threats or abuse. Nutritional screening: No deficits noted. aa5 Tuberculosis screening: No symptoms or risk factors identified. Fall Risk None identified. Assessment: 12:05 General: Appears uncomfortable, Behavior is calm, cooperative. Pain: Complains of pain aa5 in buttocks Pain does not radiate. Pain currently is 6 out of 10 on a pain scale. Quality of pain is described as tender, Is continuous. Neuro: Level of Consciousness is awake, alert, obeys commands, Oriented to person, place, time, situation. Cardiovascular: Patient's skin is warm and dry. Respiratory: Airway is patent Respiratory effort is even, unlabored, Respiratory pattern is regular, symmetrical. GI: No signs and/or symptoms were reported involving the gastrointestinal system. : No signs and/or symptoms were reported regarding the genitourinary system. EENT: No signs and/or symptoms were reported regarding the EENT system. Derm: Skin is pink, warm \T\ dry. Abscess located on left side of gluteal cleft is quarter sized, is hot to touch, is red, is raised. Musculoskeletal: Range of motion: intact in all extremities. 12:56 Reassessment: Patient is alert, oriented x 3, equal unlabored respirations, skin aa5 warm/dry/pink. Vital Signs: 12:07 BP 133 / 69; Pulse 85; Resp 16 S; Temp 97.2(TE); Pulse Ox 100% on R/A; Weight 88.45 kg ca1 (R); Height 5 ft. 5 in. (165.10 cm) (R); Pain 6/10; 12:07 Body Mass Index 32.45 (88.45 kg, 165.10 cm) ca1 ED Course: 12:01 Patient arrived in ED. as 12:05 Angie Elliott, RN is Primary Nurse. aa5 12:05 Arm band placed on right wrist. aa5 12:05 Patient has correct armband on for positive identification. Placed in gown. Bed in low aa5 position. Call light in reach. Side rails up X2. 12:08 Triage completed. ca1 12:09 Angle Case FNP-C is PHCP. snw 12:09 Aravind Kaye MD is Attending Physician. snw 12:40 Assist provider with I \T\ D: of an abscess on left gluteal cleft Set up I\T\D tray. aa 5 Performed by Angle MEDINA Wound packed. with gauze by COMMISSARY WORKER Patient tolerated well. 12:56 Patient did not have IV access during this emergency room visit. aa5 Administered Medications: 12:23 Drug: fentaNYL (PF) 50 mcg Route: IM; Site: left deltoid; aa5 12:56 Follow up: Response: No adverse reaction aa5 12:23 Drug: Clindamycin 300 mg Route: PO; aa5 12:56 Follow up: Response: No adverse reaction aa5 12:40 Drug: Lidocaine-Epinephrine -1%: (1:100,000) 1 vials {Note: administered by COMMISSARY WORKER during aa5 I\T\D.} Volume: 20 ml; Route: Infiltration; 12:40 Drug: Hibiclens 4 % 1 application Route: Topical; Site: wound; aa5 Outcome: 12:47 Discharge ordered by . snw 12:56 Discharged to home ambulatory. aa5 12:56 Condition: stable 12:56 Discharge instructions given to patient, Instructed on discharge instructions, follow up and referral plans. medication usage, Demonstrated understanding of instructions, follow-up care, medications, Prescriptions given X 2. 12:58 Patient left the ED. aa5 Signatures: Angle Case FNP-C STOVE POLISHER-CsnBailey Barry Audri, RN RN aa5 Malathi Clark RN RN ca1 Corrections: (The following items were deleted from the chart) 12:29 12:09 Arm band placed on right wrist. ca1 aa5 12:56 12:40 Assist provider with I \T\ D: of an abscess on left gluteal cleft Set up I\T\D tray. aa 5 Performed by Angle COLÓN-Leah Wound packed. iodoform gauze, Patient tolerated well. aa5
--- NOTE | 2020-03-18 12:48 | EDPHYS ---
Physician Documentation [facility] Name: Annia Wang Age: 49 yrs Sex: Female : 1970 Arrival Date: 03/18/2020 Time: 12:01 Bed 20 Private MD: ED Physician Aravind Kaye HPI: 03/18 12:26 This 49 yrs old Female presents to ER via Ambulatory with complaints of snw Abscess. 12:26 The patient presents with an abscess of the buttocks. Description: The affected area is snw moderate sized, well demarcated, pointed, raised, tender. Onset: The symptoms/episode began/occurred 4 day(s) ago, and became persistent. Associated signs and symptoms: The patient has no apparent associated signs or symptoms. Severity of symptoms: At their worst the symptoms were moderate, severe. The patient has not experienced similar symptoms in the past. It is unknown whether or not the patient has recently seen a physician. RANGE MOUNTER: 12:09 LMP N/A - Hysterectomy ca1 Historical: - Allergies: 12:09 adhesive; ca1 12:09 Levsin; ca1 12:09 Semprex-D; ca1 12:09 Sulfa (Sulfonamide Antibiotics); ca1 - Home Meds: 12:09 Humalog Sub-Q via insulin pump [Active]; rosuvastatin 5 mg oral tab 1 tab once daily ca1 [Active]; - PMHx: 12:09 allergies; Diabetes - IDDM; High Cholesterol; ca1 - PSHx: 12:09 Cholecystectomy; Hysterectomy; cardiac cath; left shoulder sx bone spur removed; phu ca1 carpal tunnel sx; sinus sx; - Immunization history:: Adult Immunizations up to date. - Social history:: Smoking status: Patient reports the use of cigarette tobacco products, smokes one pack cigarettes per day. ROS: 12:24 Constitutional: Negative for fever, chills, and weight loss, Eyes: Negative for injury, snw pain, redness, and discharge, ENT: Negative for injury, pain, and discharge, Neck: Negative for injury, pain, and swelling, Cardiovascular: Negative for chest pain, palpitations, and edema, Respiratory: Negative for shortness of breath, cough, wheezing, and pleuritic chest pain, Abdomen/GI: Negative for abdominal pain, nausea, vomiting, diarrhea, and constipation, Back: Negative for injury and pain, : Negative for injury, bleeding, discharge, and swelling, MS/Extremity: Negative for injury and deformity, Neuro: Negative for headache, weakness, numbness, tingling, and seizure, Psych: Negative for depression, anxiety, suicide ideation, homicidal ideation, and hallucinations. 12:24 Skin: Positive for abscess, of the buttocks. Exam: 12:24 Constitutional: This is a well developed, well nourished patient who is awake, alert, snw and in no acute distress. Head/Face: Normocephalic, atraumatic. Eyes: Pupils equal round and reactive to light, extra-ocular motions intact. Lids and lashes normal. Conjunctiva and sclera are non-icteric and not injected. Cornea within normal limits. Periorbital areas with no swelling, redness, or edema. ENT: Nares patent. No nasal discharge, no septal abnormalities noted. Tympanic membranes are normal and external auditory canals are clear. Oropharynx with no redness, swelling, or masses, exudates, or evidence of obstruction, uvula midline. Mucous membranes moist. Neck: Trachea midline, no thyromegaly or masses palpated, and no cervical lymphadenopathy. Supple, full range of motion without nuchal rigidity, or vertebral point tenderness. No Meningismus. Chest/axilla: Normal chest wall appearance and motion. Nontender with no deformity. No lesions are appreciated. Cardiovascular: Regular rate and rhythm with a normal S1 and S2. No gallops, murmurs, or rubs. Normal PMI, no JVD. No pulse deficits. Respiratory: Lungs have equal breath sounds bilaterally, clear to auscultation and percussion. No rales, rhonchi or wheezes noted. No increased work of breathing, no retractions or nasal flaring. Abdomen/GI: Soft, non-tender, with normal bowel sounds. No distension or tympany. No guarding or rebound. No evidence of tenderness throughout. Back: No spinal tenderness. No costovertebral tenderness. Full range of motion. MS/ Extremity: Pulses equal, no cyanosis. Neurovascular intact. Full, normal range of motion. Neuro: Awake and alert, GCS 15, oriented to person, place, time, and situation. Cranial nerves II-XII grossly intact. Motor strength 5/5 in all extremities. Sensory grossly intact. Cerebellar exam normal. Normal gait. Psych: Awake, alert, with orientation to person, place and time. Behavior, mood, and affect are within normal limits. 12:24 Skin: Appearance: Color: normal in color, abscess, that is moderate sized, approximately 3 cm(s), of the gluteal cleft, with pointing, that is obvious. Vital Signs: 12:07 BP 133 / 69; Pulse 85; Resp 16 S; Temp 97.2(TE); Pulse Ox 100% on R/A; Weight 88.45 kg ca1 (R); Height 5 ft. 5 in. (165.10 cm) (R); Pain 6/10; 12:07 Body Mass Index 32.45 (88.45 kg, 165.10 cm) ca1 Procedures: 12:53 I \T\ D: Prepped with hibiclens. Anesthetized with 5 ml's 1% Lidocaine w/ Epi. Incised snw with #11 blade. Drained large amount purulent fluid. Dressing: sterile 4x4 gauze, the patient tolerated the procedure well. MDM: 12:24 Patient medically screened. snw 12:51 Data reviewed: vital signs, nurses notes. Data interpreted: Pulse oximetry: on room air snw is 100 %. Interpretation: normal. Counseling: I had a detailed discussion with the patient and/or guardian regarding: the historical points, exam findings, and any diagnostic results supporting the discharge/admit diagnosis, the need for outpatient follow up, for definitive care, to return to the emergency department if symptoms worsen or persist or if there are any questions or concerns that arise at home. Response to treatment: the patient's symptoms have markedly improved after treatment. Special discussion: I discussed in detail with the patient the higher chance of wound infection based on his presenting history. Based on the history and exam findings, there is no indication for further emergent testing or inpatient evaluation. I discussed with the patient/guardian the need to see the siebel consultant for further evaluation of the symptoms. I discussed with the patient/guardian the need to see the primary care provider for further evaluation of the symptoms. 03/18 12:17 Order name: Incision \T\ Drainage Setup; Complete Time: 12:23 snw Administered Medications: 12:23 Drug: fentaNYL (PF) 50 mcg Route: IM; Site: left deltoid; aa5 12:56 Follow up: Response: No adverse reaction aa5 12:23 Drug: Clindamycin 300 mg Route: PO; aa5 12:56 Follow up: Response: No adverse reaction aa5 12:40 Drug: Lidocaine-Epinephrine -1%: (1:100,000) 1 vials {Note: administered by KNOWLEDGE MANAGEMENT CONSULTANT during aa5 I\T\D.} Volume: 20 ml; Route: Infiltration; 12:40 Drug: Hibiclens 4 % 1 application Route: Topical; Site: wound; aa5 Disposition: 13:37 Co-signature as Attending Physician, Aravind Kaye MD. rn Disposition: 03/18/20 12:47 Discharged to Home. Impression: Cutaneous abscess of buttock. - Condition is Stable. - Discharge Instructions: Skin Abscess, How to Take a Sitz Bath, Incision and Drainage, Care After. - Prescriptions for Clindamycin HCl 300 mg Oral Capsule - take 1 capsule by ORAL route every 8 hours for 10 days; 30 capsule. Ultram 50 mg Oral Tablet - take 1 tablet by ORAL route every 6 hours As needed; 12 tablet. - Medication Reconciliation Form, Thank You Letter, Antibiotic Education, Prescription Opioid Use form. - Follow up: Emergency Department; When: As needed; Reason: Worsening of condition. Follow up: Private Physician; When: 2 - 3 days; Reason: Recheck today's complaints, Continuance of care, Re-evaluation by your physician. Signatures: Angle Case, SENIOR OUTSIDE SALES REPRESENTATIVE-C SENIOR OUTSIDE SALES REPRESENTATIVE-Csnw Aravind Kaye MD MD rn Calderon, Audri, RN RN aa5 Malathi Clark RN RN ca1 Corrections: (The following items were deleted from the chart) 12:58 12:47 03/18/2020 12:47 Discharged to Home. Impression: Cutaneous abscess of buttock. aa5 Condition is Stable. Discharge Instructions: Skin Abscess, How to Take a Sitz Bath, Incision and Drainage, Care After. Prescriptions for Clindamycin HCl 300 mg Oral Capsule - take 1 capsule by ORAL route every 8 hours for 10 days; 30 capsule, Ultram 50 mg Oral Tablet - take 1 tablet by ORAL route every 6 hours As needed; 12 tablet. and Forms are Medication Reconciliation Form, Thank You Letter, Antibiotic Education, Prescription Opioid Use. Follow up: Emergency Department; When: As needed; Reason: Worsening of condition. Follow up: Private Physician; When: 2 - 3 days; Reason: Recheck today's complaints, Continuance of care, Re-evaluation by your physician. snw
[2020-03-18 13:48] VITALS: BP 133/69; TEMP 97.2; O2SAT 100
== END 2020-03-18 12:58 | disposition home or self-care (01) ==
LOC: ER 11:59
PROC: 0J990ZZ Drainage of Buttock Subcutaneous Tissue and Fascia, Open Approach (ICD-10-PCS; principal; 2020-03-18)
DX: L02.31 Cutaneous abscess of buttock (principal); F17.210 Nicotine dependence, cigarettes, uncomplicated; E11.9 Type 2 diabetes mellitus without complications; E78.00 Pure hypercholesterolemia, unspecified; Z79.4 Long term (current) use of insulin; Z88.2 Allergy status to sulfonamides; Z88.8 Allergy status to other drugs, medicaments and biological substances; Z91.048 Other nonmedicinal substance allergy status
CPT/HCPCS: 96372; 99283; 10060; J3010

== ENCOUNTER 2023-04-24 17:02 | Emergency (ER) | payer OTHER ==
--- OUTSIDE RECORDS SUMMARY | 2023-04-24 17:05 | XMS REPORT | Continuity of Care Document ---
:1970 Author Organization [facility] t Address [address] [place] [address] Care Team Providers Name Role Phone Provider, Express Temp Attending Clinician Unavailable Problems This patient has no known problems. Allergies, Adverse Reactions, Alerts This patient has no known allergies or adverse reactions. Medications This patient has no known medications. Procedures This patient has no known procedures. Encounters Start End Encounter Admission Attending Care Care Encounter Source Date/Time Date/Time Type Type Clinicians Facility Department ID 2021-06-07 2021-06-07 Emergency ER Provider, [facility] [id number] 13:45:00 13:45:00 Express -[id number] [facility] Results Test Description Test Time Test Comments Results Result Comments Source Chemistry 2021-06-07 15:31:00 Test Item Value Reference Range Interpretation Comme nts Chemistry (test code = NA-T) 136 mmol/L 136-145 N Chemistry (test code = K-T) 3.9 mmol/L 3.5-5.1 N Chemistry (test code = CL) 102 mmol/L 98-107 N Chemistry (test code = CO2) 26 mmol/L 22-29 N Chemistry (test code = ANGP) 12 mmol/L 10-20 N Chemistry (test code = BUN) 10 mg/dL 9.8-20.1 N Chemistry (test code = CREATT) 0.81 mg/dL 0.6-1.1 N Chemistry (test code = 75 Refer ence Range for Estimated EGFRMDRD) GFR: Greater th an 90 mL/min/1.73 m2NOTE:The MDRD equation has not been validated for use with theelderly (ove r 70 years of age), women, patientswith se rious comorbid condition or pe rsons with extremes ofbody size, muscle mass, or nutrit ional status. Chemistry (test code = GLU-T) 114 mg/dL 70-105 H Chemistry (test code = CA) 9.2 mg/dL 7.8-10.44 N Chemistry (test code = 0.4 mg/dL 0.2-1.2 N TBILI-T) Chemistry (test code = TP) 6.6 g/dL 6.0-8.3 N Chemistry (test code = ALB) 3.9 g/dL 3.5-5.0 N Chemistry (test code = GLOB) 2.7 g/dL 2.4-3.5 N Chemistry (test code = AG) 1.4 g/dL 1.2-2.2 N Chemistry (test code = ALP) 138 U/L 40-110 H Chemistry (test code = AST) 17 U/L 5-34 N Chemistry (test code = ALT) 17 U/L 8-55 N Chemistry - [id number] 15:25:00 Test Item Value Reference Range Interpretation Comments Chemistry - Lactate (test code = 1.6 mmol/L 0.5-2.2 N LACTSEP-T) [id number] 15:07:00 Test Item Value Reference Range Interpretation Comments Hematology (test code = WBCT) 4.5 thou/uL 4.8-10.8 L Hematology (test code = RBCT) 3.86 mill/uL 4.20-5.40 L Hematology (test code = HGBT) 13.1 g/dL 12.0-16.0 N Hematology (test code = HCTT) 38.9 % 36.0-47.0 N Hematology (test code = MCV) 101.0 fL 78.0-98.0 H Hematology (test code = MCH) 33.9 pg 27.0-31.0 H Hematology (test code = MCHC) 33.7 g/dL 32.0-36.0 N Hematology (test code = RDW) 12.0 % 11.5-14.5 N Hematology (test code = PLTT) 196 thou/uL 130-400 N Hematology (test code = MPV) 6.6 fL 7.4-10.4 L Hematology (test code = %NEUT) 83.1 % 42.0-75.0 H Hematology (test code = %LYMPH) 11.5 % 21.0-51.0 L Hematology (test code = %MONO) 4.5 % 0.0-10.0 N Hematology (test code = %EOS) 0.6 % 0.0-10.0 N Hematology (test code = %BASO) 0.2 % 0.0-1.0 N Hematology (test code = NEUT#) 3.7 thou/uL 1.40-6.50 N Hematology (test code = LYMPH#) 0.5 thou/uL 1.20-3.40 L Hematology (test code = MONO#) 0.2 thou/uL 0.11-0.59 N Hematology (test code = EOS#) 0.0 thou/uL 0.0-0.7 N Hematology (test code = BASO#) 0.0 thou/uL 0.0-0.2 N
[2023-04-24 17:46] LABS: Specific Gravity 1.026 (1.005-1.030); Urine Bacteria <20 /HPF (<20); Urine Bilirubin NEGATIVE (Negative); Urine Blood 1+ (Negative); Urine Clarity Clear (Clear); Urine Color Colorless (Yellow); Urine Glucose 4+ (Over) (Negative); Urine Protein NEGATIVE (Negative); Urine RBC <5 /HPF (None Seen); Urine Urobilinogen Normal (Normal)
[2023-04-24 18:02] LABS: Absolute Lymphocytes (CBC) 1.5 K/uL (0.7-4.9); Hematocrit 39.5 % (36.0-45.0); Lymphocytes % 18.2 % (15.3-44.8); MCV 97.9 fL (80-100); MPV 7.4 fL (7.6-11.3); RBC Red Blood Cell Count 4.04 M/uL (3.86-4.86)
[2023-04-24] MEDS ORDERED: NA CHLORIDE 0.9% 1,000 ML ONE (18:06)
[2023-04-24 18:22] LABS: Potassium 3.7 mEq/L (3.5-5.1)
[2023-04-24] MEDS ORDERED: INSULIN -REGULAR HUMAN 50 UNIT/0.5 ML ML ONE (18:56)
[2023-04-24] MEDS ORDERED: LIDOCAINE 1% MPF 5 ML VIAL ONE (18:57)
[2023-04-24] MEDS ORDERED: CLINDAMYCIN 600MG/D5W 50 ML IV ONE (18:57)
--- NOTE | 2023-04-24 19:02 | EDPHYS ---
Physician Documentation [facility] Name: Annia Wang Age: 53 yrs Sex: Female : 1970 Arrival Date: 04/24/2023 Time: 17:02 Bed 18 Private MD: Chloe Cleaning C ED Physician Huey Hartman HPI: 04/24 18:44 This 53 yrs old Female presents to ER via Ambulatory with complaints of High Blood kb Sugar. 18:44 The patient or guardian reports hyperglycemia, that was potentially precipitated by no kb particular event. Onset: The symptoms/episode began/occurred this morning. Associated signs and symptoms: Pertinent positives: None. Current symptoms: In the emergency department the patient's symptoms are unchanged from the initial presentation. The patient has experienced similar episodes in the past. The patient has not recently seen a physician. Pt reports her sugar has been high all day, 565 prior to arrival. States she has had an abscess to [facility] for about 5 days so she believes that triggered it. . Historical: - Allergies: 17:20 adhesive; cm10 17:20 Levsin; cm10 17:20 Semprex-D; cm10 17:20 Sulfa (Sulfonamide Antibiotics); cm10 - PMHx: 17:20 allergies; Diabetes - IDDM; High Cholesterol; cm10 - Immunization history:: Adult Immunizations unknown. - Social history:: Smoking status: Patient reports the use of cigarette tobacco products, smokes one pack cigarettes per day. ROS: 18:35 Constitutional: Negative for fever, chills, and weight loss. kb 18:35 Skin: Positive for abscess. 18:35 Endocrine: Positive for high blood sugar. 18:35 All other systems are negative. Exam: 18:34 Constitutional: This is a well developed, well nourished patient who is awake, alert, kb and in no acute distress. Head/Face: Normocephalic, atraumatic. ENT: Moist Mucous membranes Cardiovascular: Regular rate and rhythm with a normal S1 and S2. No gallops, murmurs, or rubs. No pulse deficits. Respiratory: Respirations even and unlabored. No increased work of breathing. Talking in full sentences Abdomen/GI: Soft, non-tender. No distention MS/ Extremity: Pulses equal, no cyanosis. Neurovascular intact. Full, normal range of motion. Neuro: Awake and alert, GCS 15, oriented to person, place, time, and situation. Moves all extremities. Normal gait. 18:34 ECG was reviewed by the Attending Physician. 18:34 Skin: abscess, that is small, of the left lower quadrant, with fluctuance, that is mild. Vital Signs: 17:16 BP 152 / 72; Pulse 97; Resp 18; Temp 100.4(O); Pulse Ox 100% on R/A; Weight 97.52 kg; cm10 Height 5 ft. 5 in. ; Pain 4/10; 17:45 BP 131 / 66; Pulse 73; Resp 18; Pulse Ox 98% ; ko1 18:00 BP 127 / 66; Pulse 72; Resp 16; Pulse Ox 98% ; ko1 18:30 BP 133 / 62; Pulse 71; Resp 18; Pulse Ox 99% ; ko1 17:16 Body Mass Index 35.78 (97.52 kg, 165.1 cm) cm10 17:16 Pain Scale: Adult cm10 Procedures: 18:46 I \T\ D: Incision and drainage was performed for an abscess of the left left lower kb quadrant Prepped with Betadine, Anesthetized with 2 ml's 1% Lidocaine. Incised with #11 blade. Drained moderate amount purulent fluid. Packed with iodoform gauze, Dressing: sterile 4x4 gauze, the patient tolerated the procedure well. MDM: 17:13 Patient medically screened. kb 18:44 Differential diagnosis: DKA, hyperglycemia, abscess, cellulitis. Data reviewed: vital kb signs, nurses notes. Counseling: I had a detailed discussion with the patient and/or guardian regarding: the historical points, exam findings, and any diagnostic results supporting the discharge/admit diagnosis, lab results, the need for outpatient follow up, a family practitioner, a general surgeon, to return to the emergency department if symptoms worsen or persist or if there are any questions or concerns that arise at home. 04/24 17:18 Order name: CBC with Diff; Complete Time: 18:27 kb 04/24 17:18 Order name: Basic Metabolic Panel; Complete Time: 18:27 kb 04/24 17:18 Order name: Acetone, Serum; Complete Time: 18:12 kb 04/24 17:18 Order name: Urinalysis w/ reflexes; Complete Time: 17:54 kb 04/24 17:29 Order name: Glucose, Ancillary Testing; Complete Time: 17:30 EDMS 04/24 19:07 Order name: Glucose, Ancillary Testing EDMS 04/24 17:18 Order name: EKG; Complete Time: 17:18 kb 04/24 17:18 Order name: IV Start; Complete Time: 17:53 kb 04/24 17:18 Order name: EKG - Nurse/Tech; Complete Time: 17:53 kb 04/24 18:30 Order name: I\T\D Setup; Complete Time: 18:46 kb EC:34 Rate is 70 beats/min. Rhythm is regular. QRS [place] is Normal. FL interval is normal at kb 158 msec. QRS interval is normal at 80 msec. QT interval is normal at 460 msec. Administered Medications: 18:02 Drug: NS 0.9% IV 1000 ml Route: IV; Rate: 1000 ml; Site: right antecubital; ko1 18:56 Drug: Clindamycin IVPB 600 mg Route: IVPB; Infused Over: 30 mins; Site: right ko1 antecubital; 18:56 Drug: Lidocaine Infiltration (1 %) 5 mg Route: Infiltration; ko1 18:59 CANCELLED (Physician Discretion): Insulin Regular Human IVP 10 units IVP once ko1 19:13 Drug: Ibuprofen PO 600 mg Route: PO; vc1 19:13 Follow up: Response: Medication administered at discharge. vc1 Disposition: 04/25 10:00 Co-signature as Attending Physician, Huey Hartman MD I reviewed the patient's care rt provided by the Advanced Practice Provider and agree with the diagnosis and treatment plan. Disposition Summary: 04/24/23 19:01 Discharge Ordered Location: Home kb Condition: Stable kb Diagnosis - Cutaneous abscess of abdominal wall kb - Hyperglycemia, unspecified kb Followup: kb - With: Emergency Department - When: As needed - Reason: Worsening of condition Followup: kb - With: Private Physician - When: 2 - 3 days - Reason: Recheck today's complaints, Continuance of care, Re-evaluation by your physician Discharge Instructions: - Discharge Summary Sheet kb - Skin Abscess, [id number] kb - Hyperglycemia, [id number] kb - Incision and Drainage, Care After kb Forms: - Medication Reconciliation Form kb - Thank You Letter kb - Antibiotic Education kb - Prescription Opioid Use kb Prescriptions: - Clindamycin HCl 300 mg Oral Capsule - take 1 capsule by ORAL route every 6 hours for 10 days; 40 capsule; Refills: 0, kb Product Selection Permitted Signatures: Dispatcher [employer] EDFlorence Hill FNP-C FNP-Ckb Calcote, Vanessa RN RN vc1 Ileana العراقي RN RN ko1 Huey Hartman MD MD rt Martinez, Clarissa, RN RN cm10 Corrections: (The following items were deleted from the chart) 04/24 18:59 18:28 Insulin Regular Human IVP 10 units IVP once ordered. bren ko1 18:59 18:56 Insulin Regular Human IVP 10 units IVP once ordered. ko1 ko1
--- NOTE | 2023-04-24 19:02 | ER ---
Nurse's Notes [facility] Name: Annia Wang Age: 53 yrs Sex: Female : 1970 Arrival Date: 04/24/2023 Time: 17:02 Bed 18 Private MD: Chloe Cleaning C Diagnosis: Cutaneous abscess of abdominal wall;Hyperglycemia, unspecified Presentation: 04/24 17:16 Chief complaint: Patient states: blood sugar elevated onset today. Patient states that cm10 since 1300 she has not been able to control her blood sugar. Blood sugar in triage reads "HI". Coronavirus screen: Vaccine status: Patient reports receiving the 2nd dose of the covid vaccine. Ebola Screen: No symptoms or risks identified at this time. Initial Sepsis Screen: Does the patient meet any 2 criteria? No. Patient's initial sepsis screen is negative. Does the patient have a suspected source of infection? No. Patient's initial sepsis screen is negative. Risk Assessment: Do you want to hurt yourself or someone else? Patient reports no desire to harm self or others. Onset of symptoms was April 24, 2023. 17:16 Method Of Arrival: Ambulatory cm10 17:16 Acuity: ONOFRE 3 cm10 Triage Assessment: 17:21 General: Appears in no apparent distress. Behavior is calm, cooperative. cm10 Historical: - Allergies: 17:20 adhesive; cm10 17:20 Levsin; cm10 17:20 Semprex-D; cm10 17:20 Sulfa (Sulfonamide Antibiotics); cm10 - PMHx: 17:20 allergies; Diabetes - IDDM; High Cholesterol; cm10 - Immunization history:: Adult Immunizations unknown. - Social history:: Smoking status: Patient reports the use of cigarette tobacco products, smokes one pack cigarettes per day. Screenin:30 [facility] ED Fall Risk Assessment (Adult) History of falling in the last 3 months, ko1 including since admission No falls in past 3 months (0 pts) Confusion or Disorientation No (0 pts) Intoxicated or Sedated No (0 pts) Impaired Gait No (0 pts) Mobility Assist Device Used No (0 pt) Altered Elimination No (0 pt) Score/Fall Risk Level 0 - 2 = Low Risk Oriented to surroundings, Maintained a safe environment, Educated pt \\T\\ family on fall prevention, incl call for assistance when getting out of bed, Assessed \\T\\ reinforced patient's understanding of fall precautions, Provided non-skid footwear, Hourly rounding (assess needs \\T\\ fall precautionary measures) done, Used ambulatory aids as needed (educated on \\T\\ assisted with), Used gait belt as appropriate. Abuse screen: Denies threats or abuse. Denies injuries from another. Nutritional screening: No deficits noted. Tuberculosis screening: No symptoms or risk factors identified. Assessment: 17:20 General: Appears in no apparent distress. uncomfortable, Behavior is calm, cooperative, ko1 appropriate for age. Pain: Complains of pain in abdomen and left lower quadrant. Neuro: No deficits noted. Cardiovascular: No deficits noted. Respiratory: No deficits noted. GI: No deficits noted. : No deficits noted. EENT: No deficits noted. Derm: No deficits noted. Musculoskeletal: No deficits noted. Vital Signs: 17:16 BP 152 / 72; Pulse 97; Resp 18; Temp 100.4(O); Pulse Ox 100% on R/A; Weight 97.52 kg; cm10 Height 5 ft. 5 in. ; Pain 4/10; 17:45 BP 131 / 66; Pulse 73; Resp 18; Pulse Ox 98% ; ko1 18:00 BP 127 / 66; Pulse 72; Resp 16; Pulse Ox 98% ; ko1 18:30 BP 133 / 62; Pulse 71; Resp 18; Pulse Ox 99% ; ko1 17:16 Body Mass Index 35.78 (97.52 kg, 165.1 cm) cm10 17:16 Pain Scale: Adult cm10 ED Course: 17:04 Patient arrived in ED. mr 17:04 Chloe Cleaning MD is Private Physician. mr 17:12 Florence [facility]ullen [facility] kb 17:12 Huey Hartman MD is Attending Physician. kb 17:20 Triage completed. cm10 17:21 Arm band placed on. cm10 17:24 Ileana العراقي RN is Primary Nurse. ko1 17:30 Patient has correct armband on for positive identification. Placed in gown. Bed in low ko1 position. Call light in reach. Side rails up X 1. Client placed on continuous cardiac and pulse oximetry monitoring. NIBP monitoring applied. monitoring coordinator on. Door closed. Noise minimized. Lights dimmed. Warm blanket given. 17:50 Inserted saline lock: 20 gauge in right antecubital area, using aseptic technique. ko1 Blood collected. 17:53 Acetone, Serum Sent. ko1 17:53 Basic Metabolic Panel Sent. ko1 17:53 CBC with Diff Sent. ko1 18:01 EKG done, by ED staff. aw1 19:03 Assist provider with I \\T\\ D: of an abscess on left abdomen Set up I\\T\\D tray. Performed by ko 1 Florence MEDINA Dressing with 4X4s, Patient tolerated well. 19:14 IV discontinued, intact, bleeding controlled, No redness/swelling at site. Pressure vc1 dressing applied. Administered Medications: 18:02 Drug: NS 0.9% IV 1000 ml Route: IV; Rate: 1000 ml; Site: right antecubital; ko1 18:56 Drug: Clindamycin IVPB 600 mg Route: IVPB; Infused Over: 30 mins; Site: right ko1 antecubital; 18:56 Drug: Lidocaine Infiltration (1 %) 5 mg Route: Infiltration; ko1 18:59 CANCELLED (Physician Discretion): Insulin Regular Human IVP 10 units IVP once ko1 19:13 Drug: Ibuprofen PO 600 mg Route: PO; vc1 19:13 Follow up: Response: Medication administered at discharge. vc1 Medication: 19:14 VIS not applicable for this client. vc1 Outcome: 19:01 Discharge ordered by . kb 19:14 Discharged to home ambulatory, with significant other. vc1 19:14 Condition: good 19:14 Discharge instructions given to patient, Instructed on discharge instructions, follow up and referral plans. medication usage, Demonstrated understanding of instructions, follow-up care, medications, Prescriptions given X 1. 19:14 Patient left the ED. vc1 Signatures: Florence Mullen, ADAM LINARESP-Bahman Tami Nowak mr Calista Justin RN RN vc1 Ileana العراقي RN RN ko1 Mary Alice Carter RN RN cm10 Bee Mackenzie aw1
[2023-04-24] MEDS ORDERED: IBUPROFEN 200 MG TAB PO ONE (19:15)
[2023-04-24] MEDS ORDERED: IBUPROFEN 400 MG TAB ONE (19:15)
[2023-04-24 19:41] VITALS: TEMP 100.4
[2023-04-24 20:02] VITALS: BP 133/62; O2SAT 99
--- NOTE | 2023-04-25 16:30 | EKG ---
Test Date: 2023-04-24 Test Time: 17:58:17 Balance Weigher: ESTEFANIA MEASUREMENT RESULTS: Intervals: Rate: 70 [place]: 158 QRSD: 80 QT: 426 QTc: 460 [place]: P: 43 [place]: 158 QRS: 51 T: 59 INTERPRETIVE STATEMENTS: Normal sinus rhythm Normal ECG Compared to ECG 02/23/2019 16:05:26 Atrial abnormality no longer present ST (T wave) deviation no longer present Electronically Signed On 04-25-23 16:27:42 CDT by Nash Oliveira
== END 2023-04-24 19:14 | disposition home or self-care (01) ==
LOC: ER 17:02
PROC: 0H97XZZ Drainage of Abdomen Skin, External Approach (ICD-10-PCS; principal; 2023-04-24)
DX: L02.211 Cutaneous abscess of abdominal wall (principal); E11.65 Type 2 diabetes mellitus with hyperglycemia; F17.210 Nicotine dependence, cigarettes, uncomplicated; Z88.2 Allergy status to sulfonamides; Z88.8 Allergy status to other drugs, medicaments and biological substances
CPT/HCPCS: 93005; 85025; 81001; 80048; 36415; 82010; 82947 ×2; 96374; 99285; 10060; J1815; J2001; J7030